=== PATIENT | male | born 1955 | race African-American/Black ===

== ENCOUNTER → 2018-06-02 | Outpatient (CLI) | payer OTHER ==
--- NOTE | 2018-06-02 17:00 | RAD ---
COMPLETE ABDOMINAL ULTRASOUND Clinical History: ELEVATED LFTS Comparison: None. Technique: Sonographic examination of the abdomen was performed and multiple grayscale and color Doppler static images were obtained. Findings: Due to overlying bowel gas the pancreas is obscured. The abdominal aorta and IVC are not well seen. The spleen and the left kidney are not well seen. Most of the liver is visualized and is homogeneous. The liver measures 17.8 cm. Ultrasound is not sensitive for detecting solid liver lesions. Portal flow is hepatopetal. The common bile duct is normal in caliber, measuring 2 mm in diameter. The gallbladder wall is normal. Per report, sonographic Mendes sign is negative. Tiny dependent layering gallstones are noted. There is no pericholecystic fluid. The right kidney is normal in echotexture and measures 9.2 cm. The left kidney is normal in echotexture and measures 10.2 cm. Lobular appearance of the left kidney. Corticomedullary differentiation is preserved. There is no hydronephrosis. The spleen is not enlarged, measuring 9.7 cm. IMPRESSION: 1. Cholelithiasis. 2. Borderline hepatomegaly. Electronically signed by: Devin Marino MD (06/02/2018 4:57 PM) [id number]
== END | disposition home or self-care (01) ==
LOC: US 13:51
PROVIDERS: ATTEND Family Medicine
DX: K80.20 Calculus of gallbladder without cholecystitis without obstruction (principal)
CPT/HCPCS: 76700

== ENCOUNTER → 2019-01-27 | Outpatient (CLI) | payer OTHER ==
--- NOTE | 2019-01-27 10:20 | CARD ---
MR#: [id number] Date of Study: 01/27/2019 Ordering Physician: PREETI THOMPSON, Referring Physician: PREETI THOMPSON, Tech: Skye Marie HARVEY APPROVED REPORT EXAM: Two-dimensional and M-mode echocardiogram with Doppler and color Doppler. Other Information Quality : Average Rhythm : Atrial Fibrillation INDICATION Arrhythmia 2D DIMENSIONS RVDd3.8 (2.9-3.5cm)Left Atrium(2D)4.0 (1.6-4.0cm) IVSd1.3 (0.7-1.1cm)Aortic Root(2D)3.8 (2.0-3.7cm) LVDd6.3 (3.9-5.9cm)LVOT Diameter2.4 (1.8-2.4cm) PWd1.3 (0.7-1.1cm)LVDs4.8 (2.5-4.0cm) FS (%) 24.2 %SV95.0 ml M-Mode DIMENSIONS Left Atrium(MM)4.19 (2.5-4.0cm)Aortic Root3.93 (2.2-3.7cm) Aortic Valve AoV Peak Jayson.115.7cm/sAoV VTI23.2cm AO Peak GR.5.4mmHgLVOT Peak Jayson.75.6cm/s LVOT VTI 12.71cmAO Mean GR.4mmHg MICHELLE (VMAX)2.71ud1VZA (VTI)2.53cm2 Mitral Valve MV E Pdsoebpn11.5cm/sMV E Peak Gr.104mmHg MV DECEL [id number] A Bmbzfdla71.4cm/s MV JMO06diY/A Ratio3.5 MVA (PHT)4.33cm2 Pulmonary Valve PV Peak Cpoveivh53.0cm/sPV Peak Grad.2mmHg Tricuspid Valve TR P. Dqutrtea474np/sRAP VGMIFYOV1gzZg TR Peak Gr.78ntGxBQDU86sgZs LEFT VENTRICLE The Left Ventricle is borderline dilated. There is mild concentric left ventricular hypertrophy. Left ventricle systolic function is slightly impaired. The Ejection Fraction is 45-50%. There is mild karla bal hypokinesis of the left ventricle. Transmitral Doppler flow pattern is abnormal. RIGHT VENTRICLE The right ventricle is mildly dilated. There is normal right ventricular wall thickness. The right ve ntricular systolic function is normal. ATRIA The left atrium is mildly dilated. The right atrium size is normal. The interatrial septum is intact with no evidence for an atrial septal defect or patent foramen ovale as noted on 2-D or Doppler imagi ng. AORTIC VALVE The left coronary cusp is calcified but valve opens well. The aortic valve is trileaflet. Doppler and Color Flow revealed trace aortic regurgitation. There is no significant aortic valvular stenosis. MITRAL VALVE The mitral valve is thickened but opens well. There is no evidence of mitral valve prolapse. There is no mitral valve stenosis. Doppler and Color-flow revealed moderate mitral regurgitation. TRICUSPID VALVE The tricuspid valve is normal in structure and function. Doppler and Color Flow revealed mild tricusp id regurgitation. The PA pressure was estimated at 31 mmHg. There is no tricuspid valve prolapse or v egetation. There is no tricuspid valve stenosis. PULMONIC VALVE The pulmonic valve is not well visualized. Doppler and Color Flow revealed mild pulmonic valvular reg urgitation. There is no pulmonic valvular stenosis. GREAT VESSELS The aortic root is mildly enlarged. The ascending aorta is normal in size. The IVC is normal in size and collapses >50% with inspiration. PERICARDIAL EFFUSION There is no evidence of significant pericardial effusion. Critical Notification Critical Value: No <Conclusion> The Left Ventricle is borderline dilated. Left ventricle systolic function is slightly impaired. The Ejection Fraction is 45-50%. There is mild global hypokinesis of the left ventricle. There is mild concentric left ventricular hypertrophy. There is no significant aortic valvular stenosis. Doppler and Color Flow revealed trace aortic regurgitation. Doppler and Color-flow revealed moderate mitral regurgitation. Doppler and Color Flow revealed mild tricuspid regurgitation. The PA pressure was estimated at 31 mmHg. Signed by : Preeti Thompson MD Electronically Approved : 01/27/2019 10:19:25
== END | disposition home or self-care (01) ==
LOC: ECHO 08:39
PROVIDERS: ATTEND Internal Medicine Cardiovascular Disease
DX: I08.8 Other rheumatic multiple valve diseases (principal); I77.89 Other specified disorders of arteries and arterioles; I48.91 Unspecified atrial fibrillation
CPT/HCPCS: 93306

== ENCOUNTER → 2021-05-12 | Outpatient (CLI) | payer OTHER ==
--- NOTE | 2021-05-12 14:22 | RAD ---
EXAM: Chest, 2 views. HISTORY: Shortness of breath. COMPARISON: None. FINDINGS: 2 views of the chest are obtained. There is mild interstitial prominence without anabella josé manuel estion. There is cardiomegaly and a dual-lead cardiac pacemaker defibrillator. There is no pneumothor ax or pleural effusion. There is no consolidation. IMPRESSION: Suspected chronic interstitial changes and mild cardiomegaly. Electronically signed by: Marcella Perez MD (05/12/2021 2:20 PM) [id number]
--- NOTE | 2021-05-12 17:28 | CARD ---
MR#: [id number] Date of Study: 05/12/2021 Ordering Physician: PREETI COLON, Referring Physician: PREETI COLON, Tech: Geo Rivera [facility] APPROVED REPORT EXAM: Two-dimensional and M-mode echocardiogram with Doppler and color Doppler. Other Information Quality : AverageHR: 96bpm Rhythm : Atrial Fibrillation INDICATION Congestive Heart Failure Surgery/Intervention ICD/Pacemaker: RISK FACTORS Hypertension Obesity Hyperlipidemia 2D DIMENSIONS Left Atrium(2D)4.7 (1.6-4.0cm)IVSd1.6 (0.7-1.1cm) Aortic Root(2D)3.9 (2.0-3.7cm)LVDd6.2 (3.9-5.9cm) LVOT Diameter2.4 (1.8-2.4cm)PWd1.6 (0.7-1.1cm) LVDs5.7 (2.5-4.0cm)FS (%) 8.5 % SV36.0 mlLVEF(%)18.5 (>50%) Aortic Valve AoV Peak Jayson.112.0cm/sAoV VTI17.0cm AO Peak GR.5.0mmHgLVOT Peak Jayson.71.5cm/s AO Mean GR.3mmHgAVA (VMAX)2.93cm2 Mitral Valve MV E Xebhqppm062.6cm/sMV E Peak Gr.4mmHg MV DECEL [id number] A Abdtjcgu43.5cm/s MV E Mean Gr.1mmHgE/A Ratio2.0 Pulmonary Valve PV Peak Rtskwevg22.9cm/s Tricuspid Valve TR P. Ijkcvpor094yh/sTR Peak Gr.43mmHg Pulmonary Vein S1 Epgamagu53.2cm/sD2 Dtredngn45.4cm/s LEFT VENTRICLE The Left Ventricle is moderately dilated. There is moderate concentric left ventricular hypertrophy. The systolic function is severely impaired. The Ejection Fraction is 25-30%. There is global hypokine sis of the left ventricle with septal motion suggestive of conduction defect. Diastolic function unab le to be assessed due to atrial fibrillation No left ventricle thrombus noted on this study. There is no ventricular septal defect visualized. There is no left ventricular aneurysm. There is no mass not ed in the left ventricle. RIGHT VENTRICLE The right ventricle is normal size. There is normal right ventricular wall thickness. The right ventr icular systolic function is normal. ATRIA The left atrium is moderately dilated. The right atrium is borderline dilated. The interatrial septum is intact with no evidence for an atrial septal defect or patent foramen ovale as noted on 2-D or Do ppler imaging. AORTIC VALVE The aortic valve is thickened but opens well. The aortic valve is mildly sclerotic. Doppler and Color Flow revealed no significant aortic regurgitation. There is no significant aortic valvular stenosis. There is no aortic valvular vegetation. MITRAL VALVE The mitral valve is thickened but opens well. There is no evidence of mitral valve prolapse. There is no mitral valve stenosis. Doppler and Color-flow revealed severe mitral regurgitation. TRICUSPID VALVE The tricuspid valve is normal in structure and function. Doppler and Color Flow revealed mild to mode rate tricuspid regurgitation. The PA pressure was estimated at 50 mmHg. There is no tricuspid valve p rolapse or vegetation. There is no tricuspid valve stenosis. PULMONIC VALVE The pulmonary valve is normal in structure and function. There is moderate pulmonic regurgitation. Th ere is no pulmonic valvular stenosis. GREAT VESSELS The aortic root is mildly dilated. (4.0cm) The ascending aorta is normal in size. The IVC is dilated with blunted inspiratory response. PERICARDIAL EFFUSION There is no pleural effusion. There is no evidence of significant pericardial effusion. Critical Notification Critical Value: No <Conclusion> The systolic function is severely impaired. The Ejection Fraction is 25-30%. There is global hypokinesis of the left ventricle with septal motion suggestive of conduction defect. There is moderate concentric left ventricular hypertrophy. Doppler and Color-flow revealed severe mitral regurgitation. Doppler and Color Flow revealed mild to moderate tricuspid regurgitation. The PA pressure was estimat ed at 50 mmHg. There is moderate pulmonic regurgitation. Signed by : Shreyas Cook, Electronically Approved : 05/12/2021 17:27:50
== END ==
LOC: ECHO 13:50
PROVIDERS: ATTEND Internal Medicine Cardiovascular Disease
DX: I08.8 Other rheumatic multiple valve diseases (principal); I50.9 Heart failure, unspecified; R06.02 Shortness of breath
CPT/HCPCS: 71046; 93306